=== PATIENT | female | born 1995 | race Caucasian/White ===

== ENCOUNTER 2017-03-11 18:41 | Observation (INO) | payer BC ==
[~2017-03-11] VITALS: Ht 162.6 cm; Wt 75.4 kg
[2017-03-11] MEDS ORDERED: MoRPHine SULFATE 4 MG/ML 1 ML CARP\\VIAL IV STA (18:56)
[2017-03-11] MEDS ORDERED: ONDANSETRON INJ 2 MG/ML 2 ML VIAL IV STA (18:56)
[2017-03-11] MEDS ORDERED: SODIUM CHLORIDE 0.9% 1000ML 1,000 ML IV STA (18:56)
[2017-03-11 19:23] LABS: URINE APPEARANCE CLOUDY (CLEAR); URINE BILIRUBIN NEG (NEG); URINE COLOR DK YELLOW; URINE EPITHELIAL CELL AUTO >30 /lpf (0-5); URINE NITRITE NEG (NEG); URINE PH 5.5 (4.5-7.5); URINE SPECIFIC GRAVITY 1.022 (1.000-1.030); UROBILINOGEN NEG (NEG)
[2017-03-11 19:25] LABS: MANUAL MICROSCOPIC REQUIRED? NO; REVIEW REQ? YES
--- NOTE | 2017-03-11 19:43 | DIAGNOSTIC IMAGING REPORT ---
CT SCAN OF THE ABDOMEN AND PELVIS WITHOUT CONTRAST CLINICAL HISTORY: Right lower quadrant abdominal pain COMPARISON STUDY: No previous studies for comparison. TECHNIQUE: CT scan of the abdomen and pelvis was performed from the lung bases to the proximal femurs. Images are reviewed in the axial, sagittal, and coronal planes. IV contrast was not administered for this examination. A dose lowering technique was utilized adhering to the principles of ALARA. CT DOSE: 904.44 mGycm FINDINGS: Lower chest: The heart is normal in size and configuration, without pericardial effusion. The lung bases and pleural spaces are clear. Liver: The unenhanced liver is normal in size, contour, and attenuation. There is no intrahepatic biliary ductal dilatation. Gallbladder: Unremarkable. Spleen: Normal in size and attenuation. Pancreas: Unremarkable. Adrenal glands: Unremarkable. Kidneys: There are 2 punctate nonobstructing left renal calculi. 3 right renal calculi are visualized the largest of which measures 3 mm. There is right-sided hydronephrosis and hydroureter. There is a 3.7 mm obstructing calculus at the level of the right ureterovesical junction Bowel: There are no transition zones indicate bowel obstruction. There is no acute diverticulitis. There are no findings to indicate acute appendicitis. Peritoneum: There is no intraperitoneal free air or abdominal ascites. Vasculature: The abdominal aorta is normal in course and caliber. Adenopathy: Mildly prominent right ileocolic lymph nodes are likely reactive. Pelvic viscera: The bladder, and pelvic viscera are unremarkable. Skeletal structures: No destructive osseous lesions are seen. IMPRESSION: 1. Bilateral nephrolithiasis 2. 3.7 mm obstructing calculus at the level of the right ureterovesical junction Electronically signed by: Noe London M.D. 03/11/2017 7:42 PM Dictated Date/Time: 03/11/2017 7:38 PM
[2017-03-11 19:47] LABS: BASO % 0.1 %; BASO ABS # 0.01 K/uL (0-0.2); COMPLETE YES; EOS % 0.3 %; HEMATOCRIT 35.5 % (37-47); IG% 0.3 %; LYMPH % 17.6 %; LYMPH ABS # 1.54 K/uL (1.2-3.4); MEAN CELL VOLUME 83.9 fL (80-100); MEAN CORPUSCULAR HEMOGLOBIN 29.6 pg (25-34); MEAN CORPUSCULAR HGB CONC 35.2 g/dl (32-36); MEAN PLATELET VOLUME 10.6 fL (7.4-10.4); MONO % 6.3 %; NEUT % 75.4 %; PLATELET COUNT 275 K/uL (130-400); RED BLOOD COUNT 4.23 M/uL (4.2-5.4); WHITE BLOOD COUNT 8.75 K/uL (4.8-10.8)
[2017-03-11 19:54] LABS: URINE MUCUS PRESENT (NONE PRSENT)
[2017-03-11] MEDS ORDERED: KETOROLAC TROMETHAMINE 30 MG/ML VIAL IV STA (19:58)
[2017-03-11 20:12] LABS: ALT/SGPT 14 U/L (12-78); BLOOD UREA NITROGEN 13 mg/dl (7-18); BUN/CREATININE RATIO 17.8 (10-20); CALCIUM 8.3 mg/dl (8.5-10.1); CARBON DIOXIDE 24 mmol/L (21-32); CHLORIDE 112 mmol/L (98-107); CREATININE 0.72 mg/dl (0.60-1.20); GLUCOSE 104 mg/dl (70-99); POTASSIUM 3.3 mmol/L (3.5-5.1); SODIUM 144 mmol/L (136-145)
[2017-03-11 20:15] LABS: ALKALINE PHOSPHATASE 77 U/L (45-117); AST/SGOT 13 U/L (15-37)
[2017-03-11 20:36] VITALS: O2SAT 98
[2017-03-11] MEDS ORDERED: NURSING VERBAL MED ORDER ONE (20:45)
[2017-03-11] MEDS ORDERED: MoRPHine SULFATE 2 MG/ML CARP IV STA (21:37)
--- NOTE | 2017-03-11 21:37 | History and Physical ---
History & Physical Date & Time of Service: Mar 11, 2017 at 21:30 Chief Complaint: Ab Pain Primary Care Physician: No Doctor, Assigned History of Present Illness Patient presents to the ED via ambulance from [facility]s Symptoms started 2 weeks ago. She c/o on-off pain. Thought it might be a kidney stone. Drank a lot of cranberry juice. The pain was a sharp/pressure, 6/10, occasionally going to 8/10. The pain was located in the right anterior abdomen with occasional radiation to the right costovertebral angle. Pain was worse at night. She denies any dysuria, but notes she wasn't urinating as frequently. Pain worsened suddenly today at 5pm the pain suddenly worsened to 9/10. [facility] and ambulance was called. She has a history of renal tract stones which have been treated medically. She denies fevers, chills or sweats Appetite has been normal. Had nausea/vomiting twice today. No diarrhea, melena , hematochezia or constipation. She also notes feeling slightly lightheaded all day today. Past Medical/Surgical History Medical - None Surgical - Left shoulder labral tear repair in 2016 - Renal stone in 2014 in [place]. 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 Physical Exam Vital Signs Date Time Temp Pulse Resp B/P (MAP) Pulse Ox O2 Delivery O2 Flow Rate FiO2 03/11/17 20:36 36.5 91 18 125/75 98 Room Air 03/11/17 19:16 80 03/11/17 18:55 36.6 81 18 124/72 98 Room Air General Appearance: WD/WN, no apparent distress Head: normocephalic, atraumatic Eyes: normal inspection, EOMI ENT: hearing grossly normal, pharynx normal Neck: supple, no adenopathy, no JVD Respiratory/Chest: lungs clear, no respiratory distress Cardiovascular: regular rate, rhythm, no gallop, no murmur Abdomen/GI: normal bowel sounds, soft, + tenderness (right flank) Back: + right CVA tenderness Diagnostics Laboratory Results Results Past 24 Hours Test 03/11/17 19:03 03/11/17 19:35 Range/Units Urine Color DK YELLOW Urine Appearance CLOUDY CLEAR Urine pH 5.5 4.5-7.5 Urine Specific [place] 1.022 1.000-1.030 Urine Protein NEG NEG Urine Glucose (UA) NEG NEG Urine Ketones TRACE NEG Urine Occult Blood 2+ NEG Urine Nitrite NEG NEG Urine Bilirubin NEG NEG Urine Urobilinogen NEG NEG Urine Leukocyte Esterase SMALL NEG Urine WBC (Auto) 1-5 0-5 /hpf Urine RBC (Auto) 10-30 0-4 /hpf Urine Hyaline Casts (Auto) 5-10 0-5 /lpf Urine Epithelial Cells (Auto) >30 0-5 /lpf Urine Bacteria (Auto) 1+ NEG Urine Mucus PRESENT NONE PRSENT Urine Yeast (Auto) BUDDING NONE PRSENT Urine Test NEG NEG White Blood Count 8.75 4.8-10.8 K/uL Red Blood Count 4.23 4.2-5.4 M/uL Hemoglobin 12.5 12.0-16.0 g/dL Hematocrit 35.5 37-47 % Mean Corpuscular Volume 83.9 80-100 fL Mean Corpuscular Hemoglobin 29.6 25-34 pg Mean Corpuscular Hemoglobin Concent 35.2 32-36 g/dl Platelet Count 275 130-400 K/uL Mean Platelet Volume 10.6 7.4-10.4 fL Neutrophils (%) (Auto) 75.4 % Lymphocytes (%) (Auto) 17.6 % Monocytes (%) (Auto) 6.3 % Eosinophils (%) (Auto) 0.3 % Basophils (%) (Auto) 0.1 % Neutrophils # (Auto) 6.59 1.4-6.5 K/uL Lymphocytes # (Auto) 1.54 1.2-3.4 K/uL Monocytes # (Auto) 0.55 0.11-0.59 K/uL Eosinophils # (Auto) 0.03 0-0.5 K/uL Basophils # (Auto) 0.01 0-0.2 K/uL RDW Standard Deviation 39.4 36.4-46.3 fL RDW Coefficient of Variation 12.9 11.5-14.5 % Immature Granulocyte % (Auto) 0.3 % Immature Granulocyte # (Auto) 0.03 0.00-0.02 K/uL Sodium Level 144 136-145 mmol/L Potassium Level 3.3 3.5-5.1 mmol/L Chloride Level 112 98-107 mmol/L Carbon Dioxide Level 24 21-32 mmol/L Anion Gap 8.0 3-11 mmol/L Blood Urea Nitrogen 13 7-18 mg/dl Creatinine 0.72 0.60-1.20 mg/dl Est Creatinine Clear Calc Drug Dose 123.6 ml/min Estimated GFR () 137.8 Estimated GFR (Non- 118.9 BUN/Creatinine Ratio 17.8 10-20 Random Glucose 104 70-99 mg/dl Calcium Level 8.3 8.5-10.1 mg/dl Total Bilirubin 0.3 0.2-1 mg/dl Direct Bilirubin < 0.1 0-0.2 mg/dl Aspartate Amino Transf (AST/SGOT) 13 15-37 U/L Alanine Aminotransferase (ALT/SGPT) 14 12-78 U/L Alkaline Phosphatase 77 45-117 U/L Total Protein 6.7 6.4-8.2 gm/dl Albumin 3.3 3.4-5.0 gm/dl Lipase 148 73-393 U/L Microbiology Results 03/11/17 Urine Culture, Received Pending Diagnostic Radiology CT SCAN OF THE ABDOMEN AND PELVIS WITHOUT CONTRAST CLINICAL HISTORY: Right lower quadrant abdominal pain COMPARISON STUDY: No previous studies for comparison. TECHNIQUE: CT scan of the abdomen and pelvis was performed from the lung bases to the proximal femurs. Images are reviewed in the axial, sagittal, and coronal planes. IV contrast was not administered for this examination. A dose lowering technique was utilized adhering to the principles of ALARA. CT DOSE: 904.44 mGycm FINDINGS: Lower chest: The heart is normal in size and configuration, without pericardial effusion. The lung bases and pleural spaces are clear. Liver: The unenhanced liver is normal in size, contour, and attenuation. There is no intrahepatic biliary ductal dilatation. Gallbladder: Unremarkable. Spleen: Normal in size and attenuation. Pancreas: Unremarkable. Adrenal glands: Unremarkable. Kidneys: There are 2 punctate nonobstructing left renal calculi. 3 right renal calculi are visualized the largest of which measures 3 mm. There is right-sided hydronephrosis and hydroureter. There is a 3.7 mm obstructing calculus at the level of the right ureterovesical junction Bowel: There are no transition zones indicate bowel obstruction. There is no acute diverticulitis. There are no findings to indicate acute appendicitis. Peritoneum: There is no intraperitoneal free air or abdominal ascites. Vasculature: The abdominal aorta is normal in course and caliber. Adenopathy: Mildly prominent right ileocolic lymph nodes are likely reactive. Pelvic viscera: The bladder, and pelvic viscera are unremarkable. Skeletal structures: No destructive osseous lesions are seen. IMPRESSION: 1. Bilateral nephrolithiasis 2. 3.7 mm obstructing calculus at the level of the right ureterovesical junction Electronically signed by: Noe London M.D. 03/11/2017 7:42 PM Dictated Date/Time: 03/11/2017 7:38 PM Impression Assessment and Plan 22 year old female with 3.7 mm obstructing stone in the right IVJ There is currently no evidence of hydronephrosis or infection. Patient is being admitted for intractable pain and nausea. Our plan for her is as follows: Left Obstructing Urinary Tract Stone - No evidence of hydronephrosis - Consult urology for further recommendations - Pain control Toradol / Tylenol --> Oxycodone --> Morphine - Flomax 0.4 mg BID - NSS + 20 KCl @ 125 ml/hr - No evidence of infection at this time; urine culture pending; antibiotics per day team Hypokalemia - K 3.3 on arriva - 40 mEq oral KCL now - IV fluids with supplemental K as above DVT Prophylaxis - SCD Knee, KIMBERLY Hose Code Status - Level I Full Code Disposition - Med/Surg Resident Physician Supervision Note: I was present with Dr. Hodge during the history and exam. I discussed the case with the resident and agree with the findings and plan as documented in the note. Any exceptions or clarifications are listed here: 22 y/o F no significant Hx presenting with intractable back/flank pain due to obstructing calculus OE AAO x 3 S1,2 R CTAB NT, ND No CCE P: IVF, NPO - urology consultation if stone does not pass spontaneously Documented By: Juan David Davila Level of Care Med/Surg Resuscitation Status FULL RESUSCITATION VTE Prophylaxis Risk Level: Moderate Given or contraindicated: T.E.D. Stockings, SCD's
[2017-03-11] MEDS ORDERED: POTASSIUM CHLORIDE 10 MEQ TABCR PO STA (21:49)
[2017-03-11] MEDS ORDERED: ONDANSETRON INJ 2 MG/ML 2 ML VIAL IV PRN (22:00)
[2017-03-11] MEDS ORDERED: ALUMINUM/MAGNESIUM/SIMETH (MAALOX MAX) 30 ML UDC PO PRN (22:00)
[2017-03-11] MEDS ORDERED: MAGNESIUM HYDROXIDE SUSP 30 ML UDC PO PRN (22:00)
[2017-03-11] MEDS ORDERED: KETOROLAC TROMETHAMINE 10 MG TAB PO PRN (22:00)
[2017-03-11] MEDS ORDERED: MoRPHine SULFATE 4 MG/ML 1 ML CARP\\VIAL IV PRN (22:00)
[2017-03-11] MEDS ORDERED: TAMSULOSIN HCL 0.4 MG CAP PO STA (22:04)
[2017-03-11] MEDS ORDERED: POLYETHYLENE (MIRALAX) 17 GM PACK PO PRN (22:15)
[2017-03-11 22:30] VITALS: BP 117/81; PULSE 84; TEMP 36.5; O2SAT 97
--- NOTE | 2017-03-11 22:35 | EMERGENCY ROOM VISIT NOTE ---
History Report prepared by Donnie: Zaheer Mccauley Under the Supervision of: Dr. Thomas Zavala M.D. First contact with patient: 18:51 Chief Complaint: ABDOMINAL PAIN Stated Complaint: AB PAIN History of Present Illness The patient is a 22 year old female who presents to the Emergency Room with complaints of worsening abdominal pain that started two weeks ago. She rates her pain as a 10/10 in severity. The patient states that she has been experiencing right sided abdominal pain intermittently for the last two weeks. She admits that starting two hours ago, the pain has worsened and been constant. The patient also reports that she has been experiencing nausea and vomiting. She admits that she noticed some blood in her urine when she recently urinated. The patient states that her last sexual activity was 2 years ago and she denies a possible . She admits that she has a history of kidney stones. The patient denies any fever, diarrhea, or vaginal discharge or bleeding. She was seen at an urgent care center where they sent her by ambulance for possible ruptured appendicitis. Source of History: patient Onset: two weeks ago Position: abdomen Symptom Intensity: 10/10 Timing: worsening Associated Symptoms: + nausea, + vomiting, + urinary symptoms, No fevers, No diarrhea Review of Systems See HPI for pertinent positives & negatives. A total of 10 systems reviewed and were otherwise negative. Past Medical & Surgical Medical Problems: (1) Kidney stone (2) Right ureteral stone Surgical Problems: (1) H/O shoulder surgery Family History Kidney disease Kidney stones Social History Smoking Status: Never Smoker Alcohol Use: occasionally Drug Use: none Marital Status: single Housing Status: lives with family Occupation Status: employed Current/Historical Medications No Active Prescriptions or Reported Meds Allergies Coded Allergies: Prochlorperazine (Unverified Allergy, Unknown, THROAT CLOSES, 03/11/17) Physical Exam Vital Signs Date Time Temp Pulse Resp B/P (MAP) Pulse Ox O2 Delivery O2 Flow Rate FiO2 03/11/17 20:36 36.5 91 18 125/75 98 Room Air 03/11/17 19:16 80 03/11/17 18:55 36.6 81 18 124/72 98 Room Air Physical Exam Constitutional: Vital signs reviewed. Eyes: Pupils are equal round reactive to light. Conjunctiva are noninjected. ENT: Pharynx is clear without erythema or exudate. Mucous membranes are moist. Neck supple without meningeal signs. Respiratory: Clear to auscultation bilaterally. Breath sounds are equal bilaterally. Cardiovascular: Regular rate and rhythm. No rubs or gallops. GI: Soft, nondistended and right lower quadrant tenderness with voluntary guarding. Bowel sounds are present. Musculoskeletal: No peripheral edema. No lower extremity tenderness. Integumentary: No cyanosis. Neurological: The patient is awake and alert. No focal deficits. Psychiatric: Normal affect. Medical Decision & Procedures ER Provider Diagnostic Interpretation: CT results as stated below per my review and radiologist interpretation. CT SCAN OF THE ABDOMEN AND PELVIS WITHOUT CONTRAST CLINICAL HISTORY: Right lower quadrant abdominal pain COMPARISON STUDY: No previous studies for comparison. TECHNIQUE: CT scan of the abdomen and pelvis was performed from the lung bases to the proximal femurs. Images are reviewed in the axial, sagittal, and coronal planes. IV contrast was not administered for this examination. A dose lowering technique was utilized adhering to the principles of ALARA. CT DOSE: 904.44 mGycm FINDINGS: Lower chest: The heart is normal in size and configuration, without pericardial effusion. The lung bases and pleural spaces are clear. Liver: The unenhanced liver is normal in size, contour, and attenuation. There is no intrahepatic biliary ductal dilatation. Gallbladder: Unremarkable. Spleen: Normal in size and attenuation. Pancreas: Unremarkable. Adrenal glands: Unremarkable. Kidneys: There are 2 punctate nonobstructing left renal calculi. 3 right renal calculi are visualized the largest of which measures 3 mm. There is right-sided hydronephrosis and hydroureter. There is a 3.7 mm obstructing calculus at the level of the right ureterovesical junction Bowel: There are no transition zones indicate bowel obstruction. There is no acute diverticulitis. There are no findings to indicate acute appendicitis. Peritoneum: There is no intraperitoneal free air or abdominal ascites. Vasculature: The abdominal aorta is normal in course and caliber. Adenopathy: Mildly prominent right ileocolic lymph nodes are likely reactive. Pelvic viscera: The bladder, and pelvic viscera are unremarkable. Skeletal structures: No destructive osseous lesions are seen. IMPRESSION: 1. Bilateral nephrolithiasis 2. 3.7 mm obstructing calculus at the level of the right ureterovesical junction Electronically signed by: Noe London M.D. 03/11/2017 7:42 PM Dictated Date/Time: 03/11/2017 7:38 PM Laboratory Results 03/11/17 19:35 Red Blood Count 4.23, Mean Corpuscular Volume 83.9, Mean Corpuscular Hemoglobin 29.6, Mean Corpuscular Hemoglobin Concent 35.2, Mean Platelet Volume 10.6, Neutrophils (%) (Auto) 75.4, Lymphocytes (%) (Auto) 17.6, Monocytes (%) (Auto) 6.3, Eosinophils (%) (Auto) 0.3, Basophils (%) (Auto) 0.1, Neutrophils # (Auto) 6.59, Lymphocytes # (Auto) 1.54, Monocytes # (Auto) 0.55, Eosinophils # (Auto) 0.03, Basophils # (Auto) 0.01 03/11/17 19:35 Test 03/11/17 19:03 03/11/17 19:35 Urine Color DK YELLOW Urine Appearance CLOUDY (CLEAR) Urine pH 5.5 (4.5-7.5) Urine Specific [place] 1.022 (1.000-1.030) Urine Protein NEG (NEG) Urine Glucose (UA) NEG (NEG) Urine Ketones TRACE (NEG) Urine Occult Blood 2+ (NEG) Urine Nitrite NEG (NEG) Urine Bilirubin NEG (NEG) Urine Urobilinogen NEG (NEG) Urine Leukocyte Esterase SMALL (NEG) Urine WBC (Auto) 1-5 /hpf (0-5) Urine RBC (Auto) 10-30 /hpf (0-4) Urine Hyaline Casts (Auto) 5-10 /lpf (0-5) Urine Epithelial Cells (Auto) >30 /lpf (0-5) Urine Bacteria (Auto) 1+ (NEG) Urine Mucus PRESENT (NONE PRSENT) Urine Yeast (Auto) BUDDING (NONE PRSENT) Urine Test NEG (NEG) White Blood Count 8.75 K/uL (4.8-10.8) Red Blood Count 4.23 M/uL (4.2-5.4) Hemoglobin 12.5 g/dL (12.0-16.0) Hematocrit 35.5 % (37-47) Mean Corpuscular Volume 83.9 fL (80-100) Mean Corpuscular Hemoglobin 29.6 pg (25-34) Mean Corpuscular Hemoglobin Concent 35.2 g/dl (32-36) Platelet Count 275 K/uL (130-400) Mean Platelet Volume 10.6 fL (7.4-10.4) Neutrophils (%) (Auto) 75.4 % Lymphocytes (%) (Auto) 17.6 % Monocytes (%) (Auto) 6.3 % Eosinophils (%) (Auto) 0.3 % Basophils (%) (Auto) 0.1 % Neutrophils # (Auto) 6.59 K/uL (1.4-6.5) Lymphocytes # (Auto) 1.54 K/uL (1.2-3.4) Monocytes # (Auto) 0.55 K/uL (0.11-0.59) Eosinophils # (Auto) 0.03 K/uL (0-0.5) Basophils # (Auto) 0.01 K/uL (0-0.2) RDW Standard Deviation 39.4 fL (36.4-46.3) RDW Coefficient of Variation 12.9 % (11.5-14.5) Immature Granulocyte % (Auto) 0.3 % Immature Granulocyte # (Auto) 0.03 K/uL (0.00-0.02) Anion Gap 8.0 mmol/L (3-11) Est Creatinine Clear Calc Drug Dose 123.6 ml/min Estimated GFR () 137.8 Estimated GFR (Non- 118.9 BUN/Creatinine Ratio 17.8 (10-20) Calcium Level 8.3 mg/dl (8.5-10.1) Total Bilirubin 0.3 mg/dl (0.2-1) Direct Bilirubin < 0.1 mg/dl (0-0.2) Aspartate Amino Transf (AST/SGOT) 13 U/L (15-37) Alanine Aminotransferase (ALT/SGPT) 14 U/L (12-78) Alkaline Phosphatase 77 U/L (45-117) Total Protein 6.7 gm/dl (6.4-8.2) Albumin 3.3 gm/dl (3.4-5.0) Lipase 148 U/L (73-393) Laboratory results as reviewed by me. Medications Administered Medications (Trade) Dose Ordered Sig/Dwaine Route Start Time Stop Time Status Last Admin Dose Admin Morphine Sulfate (MoRPHine SULFATE INJ) 4 mg ONE STAT IV 03/11/17 18:56 03/11/17 18:58 DC 03/11/17 19:15 4 MG Ondansetron HCl (Zofran Inj) 4 mg NOW STAT IV 03/11/17 18:56 03/11/17 18:58 DC 03/11/17 19:15 4 MG Sodium Chloride 1,000 ml @ 999 mls/hr Q1H1M STAT IV 03/11/17 18:56 03/11/17 19:56 DC 03/11/17 19:15 999 MLS/HR Ketorolac Tromethamine (Toradol Inj) 10 mg NOW STAT IV 03/11/17 19:58 03/11/17 19:59 DC 03/11/17 20:32 10 MG Miscellaneous Information (Nursing Verbal Med Order) 1 ea ONE ONCE N/A 03/11/17 20:45 03/11/17 20:46 DC 03/11/17 20:41 1 EA Morphine Sulfate (MoRPHine SULFATE INJ) 2 mg NOW STAT IV 03/11/17 21:37 03/11/17 21:38 DC 03/11/17 21:47 2 MG ED Course 1852: The patient was evaluated in room B07. A complete history and physical exam was performed. 1855: Ordered Sodium Chloride 1000 ml @ 999 mls/hr IV, Zofran Injection 4 mg IV , Morphine Sulfate 4 mg IV. 1954: I reevaluated the patient and she reports her pain as a 3/10. I discussed her CT results with her. 1957: Ordered Toradol Injection 10 mg IV. 2106: I reevaluated the patient and she is still having significant pain. 2108: I called Dr. Davila, [facility] Hospitalist for further evaluation of the patient. Medical Decision This is a 22-year-old female presents with right-sided abdominal pain. Differential diagnosis includes renal colic, hydronephrosis, ectopic , ovarian cyst, ovarian torsion, appendicitis. I did perform a limited focused review of portions of the patient's old chart on the electronic medical record. The patient has had no recent pertinent visits to this hospital. I did evaluate the patient as noted above. The patient was treated with morphine and Zofran IV. I did order and personally review the patient's urinalysis as described above. A urine culture was sent. Urine test is negative. I did order and review the patient's blood work as noted in the electronic medical record. I did order a CT of the abdomen and pelvis. I did review the images myself as well as the radiology report as described above. The patient does have a 3.7 mm right UVJ stone. I did reassess the patient. I did discuss the test results with her. She is having continued pain. She was given additional morphine as well as Toradol IV. She still had pain and so she will be hospitalized for further care and evaluation. I did discuss case with the family caseworker. The hospitalist was informed of the patient. Medication Reconcilliation Current Medication List: was personally reviewed by me Blood Pressure Screening Patient's blood pressure: Normal blood pressure Consults Time Called: 2108 Consulting Physician: Dr. Davila [facility] Hospitalist Returned Call: [address] Davila [facility] Hospitalist for further evaluation of the patient. Impression Primary Impression: Renal colic Additional Impression: Intractable pain Scribe Attestation The scribe's documentation has been prepared under my direct and personally reviewed by me in its entirety. I confirm that the note above accurately reflects all work, treatment, procedures, and medical decision making performed by me. Departure Information Dispostion Being Evaluated By Hospitalist Prescriptions No Active Prescriptions or Reported Meds Patient Instructions My [facility] Problem Qualifiers
[2017-03-11 23:42] VITALS: BP 117/81; PULSE 84; TEMP 36.5; Ht 162.6 cm; Wt 75.4 kg
[2017-03-12] MEDS: NSS + 20MEQ KCL 1000ML 1,000 ML IV SCH ×4 (00:05→22:29)
[2017-03-12] MEDS ORDERED: IV FLUIDS COMPLETED PRN (03:15)
[2017-03-12 07:17] VITALS: BP 118/78; PULSE 93; TEMP 36.6; O2SAT 97
--- NOTE | 2017-03-12 07:17 | Family Medicine Progress Note ---
Progress Note Date of Service Mar 12, 2017. Subjective Pt evaluation today including: conversation w/ patient, physical exam, chart review, lab review The patient was seen and examined at bedside. Continues to have right RUQ pain. Hasn't taken any pain medication since being in the ER. Patient is trying to eat but has no appetite. IVF infusing. Plan of care was described to the patient and all questions were answered. ROS: Denies fevers, denies dysuria, denies hematuria. Constitutional: No fever, No chills, No sweats, No weight loss ENT: No nasal symptoms, No sore throat Respiratory: No cough, No sputum, No wheezing, No shortness of breath Abdomen: + pain, + nausea, + vomiting, No diarrhea, No constipation Musculoskeletal: No joint pain Objective Physical Exam General Appearance: WD/WN, + mild distress Eyes: PERRL Neck: supple, no adenopathy Respiratory/Chest: chest non-tender, lungs clear, normal breath sounds, no respiratory distress, no accessory muscle use Cardiovascular: regular rate, rhythm, no edema, no gallop, no JVD, no murmur Abdomen: normal bowel sounds, + pertinent finding (Anterior right abdominal pain on deep palpation) Extremities: + pertinent finding (Right CVA tenderness, ) Neurologic/Psychiatric: no motor/sensory deficits, alert, normal mood/affect, oriented x 3 Skin: no rash Assessment and Plan 22F with a PMHx and Family History of Renal Stones p/w a 3.7 mm obstructing stone in the right IVJ. Urology on board. Urine also showed evidence on infection. IV Ceftriaxone was started. We will watch today and if the stone doesn't spontaneously pass we defer to urology's recommendation. Pain control with Tylenol, Naina and IV morphine PRN. (so far no doses needed). Consider HCTZ therapy on discharge or starting as outpatient. RUQ and R CVA Tenderness 2/2 Right Obstructing Urinary Tract Stone - U preg negative, no leukocytosis, no fever, still has Appendix. - Urology on board - if worsens stent tomorrow (pt doesn't like this option) or ESWL this Saturday. - Pain control (0 doses), PO Tylenol --> PO Oxycodone --> IV Morphine - Continue Flomax 0.4 mg BID - NSS + 20 KCl @ 125 ml/hr - Regular diet. - Strain urine for stone. UTI - Ceftriaxone 1g IV Q24H. - Follow up urine cultures. Hypokalemia - K 3.3 on arrival, s/p 40 mEq oral, continue to monitor. - IV fluids with supplemental K as above - Monitor DVT Prophylaxis - SCD Knee, KIMBERLY Hose Disposition - Med/Surg, NPO after midnight. FULL CODE Resident Involvement: Resident Care Provided Care Provided: Adult [facility]
--- NOTE | 2017-03-12 07:29 | Urology Consultation ---
History General Date of Service: Mar 12, 2017. Chief Complaint: right flank pain Primary Care Physician: No Doctor, Assigned Pt seen a urologist before?: No History of Present Illness 22 yo female presents to [facility] last evening with c/o severe right flank pain. She reports having pain for 2 weeks. She thought she had a stone at the time as she has a hx of passing 1 stone on her own in the past. Strong family hx of stones as well. The pt became severe last evening and was accompanied by nausea so she proceeded to [facility] where she was then sent by ambulance to the ED for possible appendicitis. She reports her pain is a 2/10 this morning. Denies dysuria or hematuria. CT scan on admission showing a 3mm right RVJ stone. She is afebrile. White count and Cr normal on admission. Labs pending this AM. Imaging Imaging: CT Laboratory Last 24 Hours Test 03/11/17 19:03 03/11/17 19:35 03/12/17 07:21 Urine Color DK YELLOW Urine Appearance CLOUDY Urine pH 5.5 Urine Specific Mercedes 1.022 Urine Protein NEG Urine Glucose (UA) NEG Urine Ketones TRACE Urine Occult Blood 2+ Urine Nitrite NEG Urine Bilirubin NEG Urine Urobilinogen NEG Urine Leukocyte Esterase SMALL Urine WBC (Auto) 1-5 /hpf Urine RBC (Auto) 10-30 /hpf Urine Hyaline Casts (Auto) 5-10 /lpf Urine Epithelial Cells (Auto) >30 /lpf Urine Bacteria (Auto) 1+ Urine Mucus PRESENT Urine Yeast (Auto) BUDDING Urine Test NEG White Blood Count 8.75 K/uL Red Blood Count 4.23 M/uL Hemoglobin 12.5 g/dL Hematocrit 35.5 % Mean Corpuscular Volume 83.9 fL Mean Corpuscular Hemoglobin 29.6 pg Mean Corpuscular Hemoglobin Concent 35.2 g/dl Platelet Count 275 K/uL Mean Platelet Volume 10.6 fL Neutrophils (%) (Auto) 75.4 % Lymphocytes (%) (Auto) 17.6 % Monocytes (%) (Auto) 6.3 % Eosinophils (%) (Auto) 0.3 % Basophils (%) (Auto) 0.1 % Neutrophils # (Auto) 6.59 K/uL Lymphocytes # (Auto) 1.54 K/uL Monocytes # (Auto) 0.55 K/uL Eosinophils # (Auto) 0.03 K/uL Basophils # (Auto) 0.01 K/uL RDW Standard Deviation 39.4 fL RDW Coefficient of Variation 12.9 % Immature Granulocyte % (Auto) 0.3 % Immature Granulocyte # (Auto) 0.03 K/uL Sodium Level 144 mmol/L Potassium Level 3.3 mmol/L Chloride Level 112 mmol/L Carbon Dioxide Level 24 mmol/L Anion Gap 8.0 mmol/L Blood Urea Nitrogen 13 mg/dl Creatinine 0.72 mg/dl Est Creatinine Clear Calc Drug Dose 123.6 ml/min Estimated GFR () 137.8 Estimated GFR (Non- 118.9 BUN/Creatinine Ratio 17.8 Random Glucose 104 mg/dl Calcium Level 8.3 mg/dl Total Bilirubin 0.3 mg/dl Direct Bilirubin < 0.1 mg/dl Aspartate Amino Transf (AST/SGOT) 13 U/L Alanine Aminotransferase (ALT/SGPT) 14 U/L Alkaline Phosphatase 77 U/L Total Protein 6.7 gm/dl Albumin 3.3 gm/dl Lipase 148 U/L Problem List Medical Problems: (1) Intractable pain Status: Acute (2) Renal colic Status: Acute Past History kidney stones Past Surgical History: orthopedic surgery (left shoulder surgery for labral tear) Family History Kidney disease Kidney stones Social History Hx Tobacco Use In Past Year?: No Smoking: non-smoker Alcohol: occasional Marital status: single Housing status: lives with family (uncle) Occupation status: employed Allergies Coded Allergies: Prochlorperazine (Unverified Allergy, Unknown, THROAT CLOSES, 03/11/17) Medications Home Medications: Home Meds and Scripts Medications Dose Route/Sig Max Daily Dose Days Date Category No Active Prescriptions or Reported Medications Rx Inpatient Medications: Current Inpatient Medications Medications (Trade) Dose Ordered Sig/Dwaine Route Start Time Stop Time Status Last Admin Dose Admin Acetaminophen (Tylenol Tab) 650 mg Q4H PRN PO 03/11/17 22:00 04/10/17 21:59 Al Hydrox/Mg Hydrox/Simethicone (Maalox Max Susp) 15 ml Q4H PRN PO 03/11/17 22:00 04/10/17 21:59 Magnesium Hydroxide (Milk Of Magnesia Susp) 30 ml Q6H PRN PO 03/11/17 22:00 04/10/17 21:59 Polyethylene (Miralax Powder Packet) 17 gm DAILY PRN PO 03/11/17 22:15 04/10/17 22:14 Ondansetron HCl (Zofran Inj) 4 mg Q6H PRN IV 03/11/17 22:00 04/10/17 21:59 Oxycodone HCl (Roxicodone Immediate Rel Tab) 5 mg Q4H PRN PO 03/11/17 22:00 03/25/17 21:59 Morphine Sulfate (MoRPHine SULFATE INJ) 4 mg Q4H PRN IV 03/11/17 22:00 03/25/17 21:59 Potassium Chloride/Sodium Chloride 1,000 ml @ 125 mls/hr Q8H IV 03/11/17 23:00 04/10/17 22:59 03/12/17 06:28 125 MLS/HR Tamsulosin HCl (Flomax Cap) 0.4 mg BID PO 03/12/17 09:00 04/11/17 08:59 Miscellaneous (Iv Fluids Completed) 1 ea PRN PRN N/A 03/12/17 03:15 03/12/18 03:14 Review of Systems Review of Systems Constitutional: No fever, No chills Eyes: No double vision Neurological: No dizzy Endocrine: No excessive thirst Gastrointestinal: + abdominal pain (right flank ), No nausea, No vomiting Cardiovascular: No chest pain Respiratory: No shortness of breath Skin: No rash Musculoskeletal: + back pain (right low back ) Female : No painful urination, No blood in urine Physical Exam Vital Signs: Vital Signs Past 12 Hours Date Time Temp Pulse Resp B/P (MAP) Pulse Ox O2 Delivery O2 Flow Rate FiO2 03/12/17 07:17 36.6 93 16 118/78 (91) 97 Room Air 03/11/17 23:42 36.5 84 18 117/81 Room Air 03/11/17 23:42 Room Air 03/11/17 22:30 36.5 84 18 117/81 (93) 97 Room Air 03/11/17 20:36 36.5 91 18 125/75 98 Room Air Physical Exam: General Appearance: no apparent distress Eyes: bilateral eyes normal inspection ENT: hearing grossly normal Neck: no JVD Respiratory/Chest: no respiratory distress, no accessory muscle use Cardiovascular: no JVD Extremities: normal inspection Neurologic/Psychiatric: alert, normal mood/affect, oriented x 3 Skin: normal color Assessment & Plan Assessment & Plan A/P: 3mm right UVJ stone AFVSS. Tx options discussed with the pt today have included a trial of passage with MET vs right ureteral stent placement today. She prefers a trial of passage overnight. Continue Flomax. Strain all urine. Encourage fluids. If pain remains controlled, may be eligible for possible ESWL this Saturday. Will get a KUB to check stone visibility. Hold Toradol and any other NSAIDS at this time for possible procedure on Saturday. Check labs and KUB in AM. NPO after midnight in the event pain worsens and stent placement is needed tomorrow. Thanks for the consult. Will continue to follow along with primary service at this time.
[2017-03-12 07:39] LABS: HEMATOCRIT 38.8 % (37-47); MEAN CELL VOLUME 86.6 fL (80-100); MEAN CORPUSCULAR HEMOGLOBIN 28.3 pg (25-34); MEAN CORPUSCULAR HGB CONC 32.7 g/dl (32-36); MEAN PLATELET VOLUME 10.6 fL (7.4-10.4); PLATELET COUNT 278 K/uL (130-400); RED BLOOD COUNT 4.48 M/uL (4.2-5.4); WHITE BLOOD COUNT 7.47 K/uL (4.8-10.8)
[2017-03-12 08:19] LABS: BLOOD UREA NITROGEN 9 mg/dl (7-18); BUN/CREATININE RATIO 16.7 (10-20); CALCIUM 8.4 mg/dl (8.5-10.1); CARBON DIOXIDE 25 mmol/L (21-32); CHLORIDE 110 mmol/L (98-107); CREATININE 0.51 mg/dl (0.60-1.20); GLUCOSE 83 mg/dl (70-99); POTASSIUM 4.4 mmol/L (3.5-5.1); SODIUM 141 mmol/L (136-145)
--- NOTE | 2017-03-12 08:38 | DIAGNOSTIC IMAGING REPORT ---
CHEST 2 VIEWS ROUTINE CLINICAL HISTORY: pre-op COMPARISON STUDY: No previous studies for comparison. FINDINGS: The bones soft tissues and hemidiaphragms are normal. The cardiomediastinal silhouette is normal. The lungs are clear. The pulmonary vasculature is normal. IMPRESSION: Negative chest. The above report was generated using voice recognition software. It may contain grammatical, syntax or spelling errors. Electronically signed by: Nixon Castillo M.D. 03/12/2017 8:37 AM Dictated Date/Time: 03/12/2017 8:34 AM
--- NOTE | 2017-03-12 08:40 | DIAGNOSTIC IMAGING REPORT ---
KUB HISTORY: Right-sided ureteral stone COMPARISON: Abdomen and pelvis CT 03/11/2017. FINDINGS: The bowel gas pattern is unremarkable. There are no dilated loops of small bowel to suggest an obstruction. No change in the 3 mm stone within the right ureterovesical junction. A few punctate bilateral renal calculi remain unchanged. No pneumoperitoneum or pneumatosis. IMPRESSION: 1. No change in the 3 mm right ureterovesical junction stone. 2. Stable bilateral nephrolithiasis. Electronically signed by: Toi Mckeon M.D. 03/12/2017 8:39 AM Dictated Date/Time: 03/12/2017 8:37 AM
[2017-03-12] MEDS: TAMSULOSIN HCL 0.4 MG CAP PO SCH ×2 (09:41→20:55)
[2017-03-12 12:00] VITALS: TEMP 37.2
[2017-03-12] MEDS: CEFTRIAXONE SOD INJ 1 GM in DEXTROSE 5% ADD-VANTAGE 50ML 50 ML IV SCH (14:18)
[2017-03-12 15:15] VITALS: BP 109/76; PULSE 87; TEMP 36.6; O2SAT 98
[2017-03-12] MEDS: OXYCODONE HCL IR 5 MG TAB (IMMEDIATE RELEASE) PO PRN (19:56)
[2017-03-12] MEDS: ACETAMINOPHEN 325 MG TAB PO PRN (20:57)
[2017-03-12 23:31] VITALS: BP 106/69; PULSE 81; TEMP 36.8; O2SAT 98
[2017-03-13] MEDS: NSS + 20MEQ KCL 1000ML 1,000 ML IV SCH ×2 (06:07→13:54)
[2017-03-13 07:13] VITALS: BP 108/75; PULSE 79; TEMP 36.6; O2SAT 95
[2017-03-13 07:56] LABS: HEMATOCRIT 37.5 % (37-47); MEAN CELL VOLUME 87.2 fL (80-100); MEAN CORPUSCULAR HEMOGLOBIN 29.1 pg (25-34); MEAN CORPUSCULAR HGB CONC 33.3 g/dl (32-36); MEAN PLATELET VOLUME 10.8 fL (7.4-10.4); PLATELET COUNT 243 K/uL (130-400); WHITE BLOOD COUNT 5.28 K/uL (4.8-10.8)
--- NOTE | 2017-03-13 08:12 | Progress Note ---
Subjective Date of Service: Mar 13, 2017. Subjective Pt evaluation today including: conversation w/ patient, conversation w/ family (uncle), chart review, lab review Voiding: no voiding problems 22 yo female with a 3mm right UVJ stone. Pt reports pain is only a 1-2/10 this morning. Denies dysuria, hematuria, or n/v. She remains afebrile. Cr pending this morning. UC&S is negative. Stone visible on KUB yesterday. KUB this morning pending. Problem List Medical Problems: (1) Intractable pain Status: Acute (2) Renal colic Status: Acute Review of Systems Constitutional: No fever, No chills Respiratory: No shortness of breath Cardiac: No chest pain Abdomen: No pain, No nausea, No vomiting Female : No dysuria, No hematuria Heme: No abnormal bleeding/bruising Objective Vital Signs Date Time Temp Pulse Resp B/P (MAP) Pulse Ox O2 Delivery O2 Flow Rate FiO2 03/13/17 07:13 36.6 79 19 108/75 (86) 95 Room Air 03/12/17 23:40 Room Air 03/12/17 23:31 36.8 81 18 106/69 (81) 98 Room Air 03/12/17 15:25 Room Air 03/12/17 15:15 36.6 87 16 109/76 (87) 98 Room Air 03/12/17 12:00 37.2 03/12/17 08:45 Room Air Physical Exam General Appearance: no apparent distress Eyes: normal inspection ENT: hearing grossly normal Neck: no JVD Respiratory/Chest: no respiratory distress, no accessory muscle use Cardiovascular: no JVD Extremities: normal inspection Neurologic/Psychiatric: alert, normal mood/affect, oriented x 3 Skin: normal color Laboratory Results Last 24 Hours Test 03/13/17 07:06 White Blood Count 5.28 K/uL Red Blood Count 4.30 M/uL Hemoglobin 12.5 g/dL Hematocrit 37.5 % Mean Corpuscular Volume 87.2 fL Mean Corpuscular Hemoglobin 29.1 pg Mean Corpuscular Hemoglobin Concent 33.3 g/dl RDW Standard Deviation 42.3 fL RDW Coefficient of Variation 13.2 % Platelet Count 243 K/uL Mean Platelet Volume 10.8 fL Assessment and Plan A/P: 3mm right UVJ stone AFVSS. Pain improved. Once again discussed right ureteral stent placement vs ESWL this Saturday. She prefers ESWL. Stone visible on KUB for procedure. Avoid any NSAIDS until procedure. Pt OK for d/c home from [facility]. D/c home with Flomax, Colace, and pain medication. She will f/u with me outpatient tomorrow. Thanks for allowing us to participate in this pt's care. Recall PRN issues. Discharge planning: home
[2017-03-13 08:24] LABS: BLOOD UREA NITROGEN 8 mg/dl (7-18); BUN/CREATININE RATIO 13.2 (10-20); CALCIUM 8.6 mg/dl (8.5-10.1); CARBON DIOXIDE 27 mmol/L (21-32); CHLORIDE 109 mmol/L (98-107); CREATININE 0.57 mg/dl (0.60-1.20); GLUCOSE 75 mg/dl (70-99); POTASSIUM 4.2 mmol/L (3.5-5.1); SODIUM 142 mmol/L (136-145)
[2017-03-13] MEDS: TAMSULOSIN HCL 0.4 MG CAP PO SCH (08:36)
[2017-03-13] MEDS: ACETAMINOPHEN 325 MG TAB PO PRN (08:37)
--- NOTE | 2017-03-13 09:28 | DIAGNOSTIC IMAGING REPORT ---
KUB HISTORY: Follow-up study to assess ureteral stone. ureteral stone COMPARISON: KUB 03/12/2017, CT abdomen and pelvis 03/11/2017 FINDINGS: The bowel gas pattern is non-obstructive. There is no organomegaly. There is no change in positioning of the 3 mm stone within the region of the right ureterovesicular junction. Bilateral nephrolithiasis redemonstrated. No pneumoperitoneum or pneumatosis. No fracture. The ribs at T12 are hypoplastic. IMPRESSION: 1. No change in position of the 3 mm calculus within the region of the right ureterovesicular junction. 2. Bilateral nephrolithiasis. Electronically signed by: Chris Saleem M.D. 03/13/2017 9:26 AM Dictated Date/Time: 03/13/2017 9:24 AM
[2017-03-13] MEDS: CEFTRIAXONE SOD INJ 1 GM in DEXTROSE 5% ADD-VANTAGE 50ML 50 ML IV SCH (13:53)
[2017-03-13] MEDS: OXYCODONE HCL IR 5 MG TAB (IMMEDIATE RELEASE) PO PRN (13:54)
[2017-03-13] MEDS ORDERED: DOCU-94 PO (13:55)
[2017-03-13] MEDS ORDERED: FLM4 PO (13:55)
[2017-03-13] MEDS ORDERED: RXC5 PO (13:55)
--- NOTE | 2017-03-13 14:01 | Discharge Instructions ---
Discharge Instructions Date of Service Mar 13, 2017. Admission Reason for Admission: Right Ureteral Stone Discharge Discharge Diagnosis / Problem: Kidney Stone Discharge Goals Goal(s): Decrease discomfort, Improve function, Increase independence, Improve disease control, Improve nutritional status, Learn about illness Activity Recommendations Activity Limitations: per Instructions/Follow-up section . Instructions / Follow-Up Instructions / Follow-Up Follow up with your Urology Appointment tomorrow. You are being prescribed Flomax to take to help pass your kidney stone. For mild to moderate pain we recommend taking Tylenol 650mg every 6 hours as needed. We are also prescribing a pain medication for severe pain, Oxycodone 5mg. You are to take this medication every 6 hours as needed for pain. We are giving 8 tablets. You should only take Oxycodone for severe pain. Oxycodone can constipate you. We recommend taking Colace for constipation. Drink a lot of water. If you experience extreme worsening of your pain or high grade fevers please call your urologist or come to the ER immediately. We are printing an information packet about kidney stones and pain medication, please read this packet. Please follow up with a Primary Care Provider within one week. Current Hospital Diet Patient's current hospital diet: Regular Diet Discharge Diet Recommended Diet: Regular Diet Pending Studies Studies pending at discharge: no Laboratory Results CT SCAN OF THE ABDOMEN AND PELVIS WITHOUT CONTRAST CLINICAL HISTORY: Right lower quadrant abdominal pain COMPARISON STUDY: No previous studies for comparison. TECHNIQUE: CT scan of the abdomen and pelvis was performed from the lung bases to the proximal femurs. Images are reviewed in the axial, sagittal, and coronal planes. IV contrast was not administered for this examination. A dose lowering technique was utilized adhering to the principles of ALARA. CT DOSE: 904.44 mGycm FINDINGS: Lower chest: The heart is normal in size and configuration, without pericardial effusion. The lung bases and pleural spaces are clear. Liver: The unenhanced liver is normal in size, contour, and attenuation. There is no intrahepatic biliary ductal dilatation. Gallbladder: Unremarkable. Spleen: Normal in size and attenuation. Pancreas: Unremarkable. Adrenal glands: Unremarkable. Kidneys: There are 2 punctate nonobstructing left renal calculi. 3 right renal calculi are visualized the largest of which measures 3 mm. There is right-sided hydronephrosis and hydroureter. There is a 3.7 mm obstructing calculus at the level of the right ureterovesical junction Bowel: There are no transition zones indicate bowel obstruction. There is no acute diverticulitis. There are no findings to indicate acute appendicitis. Peritoneum: There is no intraperitoneal free air or abdominal ascites. Vasculature: The abdominal aorta is normal in course and caliber. Adenopathy: Mildly prominent right ileocolic lymph nodes are likely reactive. Pelvic viscera: The bladder, and pelvic viscera are unremarkable. Skeletal structures: No destructive osseous lesions are seen. IMPRESSION: 1. Bilateral nephrolithiasis 2. 3.7 mm obstructing calculus at the level of the right ureterovesical junction Medical Emergencies . Who to Call and When: Medical Emergencies: If at any time you feel your situation is an emergency, please call 911 immediately. . Non-Emergent Contact Non-Emergency issues call your: Primary Care Provider, Urologist . . "Provider Documentation" section prepared by Nixon Louis. . VTE Core Measure Inpt VTE Proph given/why not?: Fredrick Dixon SCD's Resident Involvement: Resident Care Provided Care Provided: Adult Hospital Medicine
--- NOTE | 2017-03-13 14:10 | Discharge Summary ---
Discharge Summary Date of Service Mar 13, 2017. Discharge Summary Admission Date: Mar 11, 2017 at 21:49 Discharge Date: Mar 13, 2017 Discharge Disposition: Home Principal Diagnosis: Kidney Stones Procedures: CT SCAN OF THE ABDOMEN AND PELVIS WITHOUT CONTRAST CLINICAL HISTORY: Right lower quadrant abdominal pain COMPARISON STUDY: No previous studies for comparison. TECHNIQUE: CT scan of the abdomen and pelvis was performed from the lung bases to the proximal femurs. Images are reviewed in the axial, sagittal, and coronal planes. IV contrast was not administered for this examination. A dose lowering technique was utilized adhering to the principles of ALARA. CT DOSE: 904.44 mGycm FINDINGS: Lower chest: The heart is normal in size and configuration, without pericardial effusion. The lung bases and pleural spaces are clear. Liver: The unenhanced liver is normal in size, contour, and attenuation. There is no intrahepatic biliary ductal dilatation. Gallbladder: Unremarkable. Spleen: Normal in size and attenuation. Pancreas: Unremarkable. Adrenal glands: Unremarkable. Kidneys: There are 2 punctate nonobstructing left renal calculi. 3 right renal calculi are visualized the largest of which measures 3 mm. There is right-sided hydronephrosis and hydroureter. There is a 3.7 mm obstructing calculus at the level of the right ureterovesical junction Bowel: There are no transition zones indicate bowel obstruction. There is no acute diverticulitis. There are no findings to indicate acute appendicitis. Peritoneum: There is no intraperitoneal free air or abdominal ascites. Vasculature: The abdominal aorta is normal in course and caliber. Adenopathy: Mildly prominent right ileocolic lymph nodes are likely reactive. Pelvic viscera: The bladder, and pelvic viscera are unremarkable. Skeletal structures: No destructive osseous lesions are seen. IMPRESSION: 1. Bilateral nephrolithiasis 2. 3.7 mm obstructing calculus at the level of the right ureterovesical junction Medication Reconciliation New Medications: Docusate Sodium (Colace) 100 Mg Cap 1 CAP PO BID for 3 Days, #6 CAP Oxycodone HCl (Oxycodone HCl) 5 Mg Tab 5 MG PO Q6H PRN for Pain, #8 TAB Tamsulosin HCl (Tamsulosin HCl) 0.4 Mg Cap 0.4 MG PO BID for 3 Days, #6 CAP Discharge Exam The patient was seen and examined at bedside. Continues to have right RUQ pain. Does not believe that she passed the stone. Plan of care was described to the patient and all questions were answered. ROS: Denies fevers, denies dysuria, denies hematuria. Constitutional: No fever, No chills, No sweats, No weight loss ENT: No nasal symptoms, No sore throat Respiratory: No cough, No sputum, No wheezing, No shortness of breath Abdomen: + pain, No diarrhea, No constipation Musculoskeletal: No joint pain Physical Exam General Appearance: WD/WN, no acute distress. Eyes: PERRL Neck: supple, no adenopathy Respiratory/Chest: chest non-tender, lungs clear, normal breath sounds, no respiratory distress, no accessory muscle use Cardiovascular: regular rate, rhythm, no edema, no gallop, no JVD, no murmur Abdomen: normal bowel sounds, + pertinent finding (Anterior right abdominal pain on deep palpation) Extremities: + pertinent finding (Right CVA tenderness, ) Neurologic/Psychiatric: no motor/sensory deficits, alert, normal mood/affect, oriented x 3 Skin: no rash Hospital Course 22F with a PMHx and Family History of Renal Stones p/w a 3.7 mm obstructing stone in the right IVJ. Urology was consulted. Urine also showed evidence on infection and pt was started on IV Ceftriaxone. Stone did not pass spontaneously. After a discussion between the patient and the urology team it was decided that conservative management until Saturday would be the best course of action and then an ESWL on Saturday if necessary. Pt was discharged on Flomax , Colace and a prescription for 8 tabs of Oxycodone. Urine culture was revealed to be a contaminate. Pt received two doses of Ceftriaxone and was not discharged on Abx. Follow up with Urology team on 03/14/2017 and ESWL if needed on Saturday. Total Time Spent: Greater than 30 minutes (40 minutes) This includes examination of the patient, discharge planning, medication reconciliation, and communication with other providers. Discharge Instructions Please refer to the electronic Patient Visit Report (Discharge Instructions) for additional information. Follow-Up Urology on 03/14/2017. PCP within one week. Additional Copies To Ana Laura Solis CRNP Resident Involvement: Resident Care Provided Care Provided: [facility]
[2017-03-13 15:30] VITALS: BP 108/75; PULSE 79; TEMP 36.6; O2SAT 95
[2017-03-15] MEDS ORDERED: HYDR-5688 PO (08:13)
== END 2017-03-13 16:02 | disposition home or self-care (01) ==
LOC: EDBD 18:41 → C.EDB 18:44 → C.MSN 21:49 → ENRESERV 22:00
PROVIDERS: ADMIT Student in an Organized Health Care Education/Training Program; ATTEND Hospitalist
DX: N20.0 Calculus of kidney (principal); N39.0 Urinary tract infection, site not specified; E87.6 Hypokalemia; Z84.1 Family history of disorders of kidney and ureter

== ENCOUNTER → 2017-03-15 | Day surgery (SDC) | payer BC ==
[2017-03-13 09:44] VITALS: Ht 162.6 cm; Wt 75.5 kg
[~2017-03-15] VITALS: Ht 162.6 cm; Wt 75.5 kg
[~2017-03-15] MED LIST: ATROPINE SULFATE 0.1 MG/ML 5ML SYR IV PRN; CIPROFLOXACIN 400MG / D5W IV SCH; DEXAMETHASONE SOD INJ 4 MG/ML VIAL ONE; DOCU-94 PO; EpHEDrine SULFATE INJ 50 MG/ML AMP IV PRN; FENTANYL CITRATE INJ 50 MCG/1 ML 2 ML VIAL IV PRN; FENTANYL CITRATE INJ 50 MCG/1 ML 2 ML VIAL ONE; FLM4 PO; HYDR-5688 PO; LIDOCAINE HCL 2% 2 ML VIAL (20MG/ML) ONE; MIDAZOLAM HCL 1 MG/ML 2ML VIAL ONE; ONDANSETRON INJ 2 MG/ML 2 ML VIAL ONE; OXYCODONE/ACETAMINOPHEN 5-325 TAB PO PRN; PROPOFOL IV EMULSION 10 MG/ML 20 ML VIAL IV ONE; RXC5 PO; SCOPOLAMINE 1.5 MG TDSY TD ONE; SODIUM CHLORIDE 0.9% 1000ML 1,000 ML IV SCH
--- NOTE | 2017-03-15 08:03 | History & Physical Bridge Note ---
H&P Re-Evaluation Bridge Note: I have examined the patient, reviewed the History & Physical and in the interval since the performance of the History & Physical I have noted the following changes of clinical significance: No changes noted
--- NOTE | 2017-03-15 08:15 | Discharge Instructions-SurgCtr ---
Discharge Instructions Date of Service Mar 15, 2017. Visit Reason for Visit: Stones Discharge Discharge Diagnosis / Problem: stones Discharge Goals Goal(s): Decrease discomfort, Improve function, Increase independence, Improve disease control Activity Recommendations Activity Limitations: resume your previous activity Lifting Limitations: none Exercise/Sports Limitations: none May Resume Sexual Activity: when tolerated Shower/Bathe: no limitations Driving or Machine Use: resume 1 day after discharge Anesthesia . Post Anesthesia Instructions: If you have had General Anesthesia or IV Sedation: * Do not drive today. * Resume driving when surgeon permits. * Do not make important decisions or sign legal documents today. * Call surgeon for: 1. Temperature elevations greater than 101 degrees F. 2. Uncontrollable pain. 3. Excessive bleeding. 4. Persistent nausea and vomiting. 5. Medication intolerance (nausea, vomiting or rash). * For nausea and vomiting use only clear liquids such as: tea, soda, bouillon until nausea subsides, then gradually increase diet as tolerated. * If you have any concerns or questions, call your surgeon's office. If physician is unavailable and it is an emergency, call 911 or go to the nearest emergency room. . Instructions / Follow-Up Instructions / Follow-Up Please keep your previously scheduled follow up appointment Diet Recommendations Home Diet: no limitations Procedures Procedures Performed: ESWL (stone treatment) Pending Studies Studies pending at discharge: no Medical Emergencies . Who to Call and When: Medical Emergencies: If at any time you feel your situation is an emergency, please call 911 immediately. . Non-Emergent Contact Non-Emergency issues call your: Urologist Call Non-Emergent contact if: you have a fever, temperature is above 101.5, your pain is not controlled, your pain is worsening . . "Provider Documentation" section prepared by Maury Louis. . [place] Drug Monitoring Program Search Results: patient reviewed within database, no issues identified
--- NOTE | 2017-03-15 09:39 | [facility] Operative Report ---
Operative Report Operative Date Mar 15, 2017. Pre-Operative Diagnosis Right Ureteral Stone Post-Operative Diagnosis Pre-op Procedure(s) Performed Right Extracorporeal Shock Wave Lithotripsy -Ureteral Surgeon Dr. Love Ryan Contact Worker Surgeon(s) None Estimated Blood Loss 0mL Findings Distal right ureteral stone Specimens None Drains none Anesthesia Gen. Complication(s) None Disposition Recovery Room / PACU (stable) Indications Symptomatic ureteral stone Description of Procedure Mauricio Pastrana was identified in the preoperative holding area, appropriate informed consent was reviewed and completed and the patient was transported to the operating suite. Upon arrival appropriate preoperative antibiotics were administered and general anesthesia induced. The patient was placed in supine position and the stone was localized under fluoroscopy. A total of 3000 shocks were delivered to the stone. There appeared to be good fragmentation of the stone. Details of this procedure can be found on the [facility] information sheet. At the conclusion of the case the patient was extubated and taken to the PACU in stable condition. There were no complications. I attest to the content of the Intraoperative Record and any orders documented therein. Any exceptions are noted below.
--- NOTE | 2017-03-15 11:13 | Anesthesia Progress Nt - [facility] ---
Anesthesia Post Op Note Date & Time Mar 15, 2017 at 11:13 Vital Signs Pain Intensity: 5.0 Vital Signs Past 12 Hours Date Time Temp Pulse Resp B/P (MAP) Pulse Ox O2 Delivery O2 Flow Rate FiO2 03/15/17 10:30 36.6 80 16 127/86 (100) 100 Room Air 03/15/17 10:17 36.4 72 16 140/86 99 Room Air 03/15/17 10:12 71 11 03/15/17 10:12 72 11 99 03/15/17 10:11 134/91 03/15/17 10:07 79 10 03/15/17 10:07 78 10 98 03/15/17 10:06 140/89 03/15/17 10:02 88 10 03/15/17 10:02 10 03/15/17 10:01 146/89 03/15/17 09:57 73 8 100 03/15/17 09:57 74 8 03/15/17 09:56 124/86 03/15/17 09:52 79 16 03/15/17 09:52 77 16 100 03/15/17 09:51 131/85 03/15/17 09:47 76 3 100 03/15/17 09:47 76 3 03/15/17 09:46 74 7 122/91 100 03/15/17 09:46 75 7 03/15/17 09:43 122/92 03/15/17 09:41 36.7 77 12 107/77 99 Mask 03/15/17 06:49 36.7 83 18 116/81 (93) 98 Room Air Notes Mental Status: alert / awake / arousable, participated in evaluation Pt Amnestic to Procedure: Yes Nausea / Vomiting: adequately controlled Pain: adequately controlled Airway Patency, RR, SpO2: stable & adequate BP & HR: stable & adequate Hydration State: stable & adequate Anesthetic Complications: no major complications apparent
[2017-03-15 11:25] VITALS: BP 118/88; PULSE 84; TEMP 36.6; O2SAT 99
== END | disposition home or self-care (01) ==
LOC: X.SURG 06:21
PROVIDERS: ATTEND Urology
DX: N20.0 Calculus of kidney (principal); N20.1 Calculus of ureter; G47.33 Obstructive sleep apnea (adult) (pediatric); Z98.890 Other specified postprocedural states; Z87.891 Personal history of nicotine dependence; Z83.3 Family history of diabetes mellitus; Z82.49 Family history of ischemic heart disease and other diseases of the circulatory system; Z84.1 Family history of disorders of kidney and ureter; Z80.41 Family history of malignant neoplasm of ovary

== ENCOUNTER → 2017-03-27 | Outpatient (CLI) | payer BC ==
[~2017-03-27] MED LIST changes: -ATROPINE SULFATE 0.1 MG/ML 5ML SYR IV PRN; -CIPROFLOXACIN 400MG / D5W IV SCH; -DEXAMETHASONE SOD INJ 4 MG/ML VIAL ONE; -DOCU-94 PO; -EpHEDrine SULFATE INJ 50 MG/ML AMP IV PRN; -FENTANYL CITRATE INJ 50 MCG/1 ML 2 ML VIAL IV PRN; -FENTANYL CITRATE INJ 50 MCG/1 ML 2 ML VIAL ONE; -LIDOCAINE HCL 2% 2 ML VIAL (20MG/ML) ONE; -MIDAZOLAM HCL 1 MG/ML 2ML VIAL ONE; -ONDANSETRON INJ 2 MG/ML 2 ML VIAL ONE; -OXYCODONE/ACETAMINOPHEN 5-325 TAB PO PRN; -PROPOFOL IV EMULSION 10 MG/ML 20 ML VIAL IV ONE; -RXC5 PO; -SCOPOLAMINE 1.5 MG TDSY TD ONE; -SODIUM CHLORIDE 0.9% 1000ML 1,000 ML IV SCH
== END | disposition home or self-care (01) ==
LOC: C.LABSPEC 17:07
PROVIDERS: ATTEND Nurse Practitioner Adult Health
DX: N20.0 Calculus of kidney (principal)

== ENCOUNTER → 2017-03-27 | Outpatient (CLI) | payer BC ==
--- NOTE | 2017-03-27 12:28 | DIAGNOSTIC IMAGING REPORT ---
KUB HISTORY: N20.0 [id number] COMPARISON: KUB 03/13/2017. FINDINGS: The bowel gas pattern is unremarkable. There are no dilated loops of small bowel to suggest an obstruction. There are 2 stable stones within the right kidney with the largest measuring 4 mm within the lower pole. A few punctate left renal calculi. No ureteral calculi identified. No pneumoperitoneum or pneumatosis. IMPRESSION: Stable bilateral nephrolithiasis. No ureteral calculi identified. Electronically signed by: Toi Mckeon M.D. 03/27/2017 12:27 PM Dictated Date/Time: 03/27/2017 12:26 PM
== END | disposition home or self-care (01) ==
LOC: C.RAD 12:06
PROVIDERS: ATTEND Nurse Practitioner Adult Health
DX: N20.0 Calculus of kidney (principal)

== ENCOUNTER 2017-04-04 06:43 | Emergency (ER) | payer BC ==
[~2017-04-04] VITALS: Ht 162.6 cm; Wt 75.0 kg
[2017-04-04 06:48] VITALS: TEMP 36.6; Ht 162.6 cm; Wt 75.0 kg
[2017-04-04] MEDS ORDERED: XYLOCAINE 1%/SOD BICARB 20 ML VIAL INFIL ONE (07:15)
--- NOTE | 2017-04-04 07:30 | EMERGENCY ROOM VISIT NOTE ---
ED Visit Note First contact with patient: 06:51 CHIEF COMPLAINT: Infected cyst on back HISTORY OF PRESENT ILLNESS: This 22-year-old female patient has had a painful swelling at the top of the gluteal crease of the buttocks for 7 days. There has been no injury to the area and no drainage. The patient denies fever, chills, or loss of appetite. The pain is steady, moderately severe, and hurts worse when sitting or bending over. REVIEW OF SYSTEMS: 10 system review was performed and was negative unless stated otherwise history of present illness. PMH: The patient is healthy; kidney stones, shoulder surgery SOCIAL HISTORY: Patient lives with her uncle. The patient denies any tobacco use but admits to occasional alcohol use. PHYSICAL EXAM: Vital Signs: Were reviewed Reviewed Nurse's notes. GEN.: 22-year -old white female appears in no acute distress. MENTAL Status: Alert and oriented 3. BUTTOCKS: There is a fluctuant, tender swelling at the top of the gluteal crease. There is no pointing. It feels like a typical subcutaneous abscess. No surrounding erythema. EMERGENCY DEPARTMENT COURSE: After saline and Betadine cleansing and lidocaine anesthesia, the abscess was incised with a number 11 scalpel blade. Only blood was expressed, there was no purulent fluid therefore no culture or packing was performed. Antibiotic ointment and bandage was applied. The patient tolerated procedure well. DIAGNOSIS: Pilonidal cyst-abscess DISCHARGE INSTRUCTIONS AND TREATMENT: Keflex, 500 mg 4 times a day for 7 days. Change the dressing if it becomes bloody or soiled. Ibuprofen 600 mg every 6 hours with food for pain. Take [place] as needed for more severe pain. Warm compresses or sitz baths frequently to promote drainage. It the area becomes larger and is more painful return to ER for drainage. If the area is draining you do not need to return to the ER as long as that continues to drain and seems to be improving in size. Problem List Surgical Problems: (1) H/O shoulder surgery Status: Resolved Current/Historical Medications No Active Prescriptions or Reported Meds Allergies Coded Allergies: Prochlorperazine (Unverified Allergy, Severe, THROAT CLOSES, 04/04/17) Vital Signs Date Time Temp Pulse Resp B/P (MAP) Pulse Ox O2 Delivery O2 Flow Rate FiO2 04/04/17 06:48 36.6 102 18 122/87 97 Room Air Medications Administered Medications (Trade) Dose Ordered Sig/Dwaine Route Start Time Stop Time Status Last Admin Dose Admin Lidocaine HCl (Buffered Lidocaine 1% Inj) 20 ml NOW ONCE INFIL 04/04/17 07:15 04/04/17 07:16 DC 04/04/17 07:08 20 ML Departure Information Prescriptions No Active Prescriptions or Reported Meds Referrals No Doctor, Assigned (PCP) Patient Instructions [facility]
[2017-04-04] MEDS ORDERED: HYDR-5688 PO (07:32)
[2017-04-04] MEDS ORDERED: CEPH500C2 PO (07:32)
[2017-04-04 07:43] VITALS: BP 129/80; PULSE 90; O2SAT 98
== END 2017-04-04 07:45 | disposition home or self-care (01) ==
LOC: C.EDB 06:44 → C.EDA 07:45
DX: L05.01 Pilonidal cyst with abscess (principal)